=== PATIENT | female | born 1950 | race Caucasian/White ===

== ENCOUNTER → 2016-09-03 | Day surgery (SDC) | payer OTHER ==
[~2016-09-03] VITALS: Ht 165.1 cm; Wt 78.8 kg
[~2016-09-03] MED LIST: *ONDANSETRON 4 MG VIAL PERIprocedural Use ONLY ONE; *PROMETHAZINE 25 MG/ML VIAL PERIprocedural use ONLY ONE; ACETAMINOPHEN 1000 MG/100 ML VIAL IV SCH; ASPI1TAB69 PO; BUPIVACAINE LIPOSOME PF 1.3% 20 ML VIAL INFIL ONE; BUPIVACAINE/EPINEPHRINE 0.5% 50 ML VIAL ONE; COUM7.5T PO; DEXAMETHASONE SOD PHOS 4 MG/ML VIAL ONE; ESTR42.5V VAGINAL; FAMOTIDINE 20 MG/2 ML VIAL ONE; INSULIN HUMAN REGULAR 1,000 UNITS/10 ML VIAL SQ PRN; KETAMINE HCL 500 MG/5 ML VIAL ONE; LACTATED RINGER'S 1000 ML IV SCH; LIDOCAINE 1%/EPINEPHrine 1:100,000 SOLN 50 ML VIAL ONE; METOPROLOL TARTRATE 25 MG TAB PO PRN; MIDAZOLAM HCL 2 MG/2 ML VIAL ONE; MORPHINE SULFATE 4 MG/ML INJ IV PRN; ONDANSETRON HCL 4 MG/2 ML VIAL IV PRN; ONDANSETRON HCL 4 MG/2 ML VIAL IV PUSH ONE; PROPOFOL 200 MG/20 ML AMP IV ONE; SODIUM CHLORID 0.9% 500 ML IV SCH; SODIUM CHLORIDE 5 ML FLUSH BID IVF SCH; SODIUM CHLORIDE 5 ML FLUSH PRN IVF; TIMO0.5S30 RIGHT EYE; ZANT150T2 PO; ceFAZolin 2 GM PREMIX 50 ML IV SCH; oxyCODONE/ACETAMINOPHEN 5 MG/325 MG TAB PO PRN
[2016-09-03 06:42] VITALS: BP 120/70; PULSE 63; RESP 16; TEMP 97.9; O2SAT 99
[2016-09-03 07:16] LABS: PROTHROMBIN TIME - PATIENT 11.2 SEC (9.8-11.6)
--- NOTE | 2016-09-03 11:02 | PD.OP ---
cc: Jeferson Howell MD Operative Report Date of Surgery: Sep 03, 2016 Preoperative Diagnosis: Right inguinal hernia Postoperative Diagnosis: Right inguinal hernia Procedure: Repair of right inguinal hernia with pro-brick catcher mesh Anesthesia: Gen. Surgeon: Jeferson Howell Emergency Medical Technician(s): SIMONE Hebert Operation and Findings: Operative findings: The patient was found to have a defect near the pubic symphysis which is approximately 2-1/2 cm in diameter. There is no evidence of incarcerated viscera. No other abnormalities were noted. Operative procedure: The patient was brought to the operating room and after satisfactory sedation by anesthesia, the abdomen was prepped and draped in the usual sterile fashion. 0.5% Exparel was used to infiltrate the skin for local anesthesia. A transverse right inguinal incision was made, carried out sharply through the subcutaneous tissue, with the cautery being used for hemostasis. Incision was deepened to the external oblique fascia which was opened in the direction of its fibers down to and through the external ring. The underside of the fascia was cleaned and the hernia sac was identified. The hernia sac was dissected free from the surrounding structures using the cautery after which it was circumferentially scored to allow reduction into the properitoneal space. After completely identifying the area of the hernia in the inguinal floor, the floor was closed with interrupted 0 Vicryl sutures which were brought between the internal oblique fascia and the shelving edge of the inguinal ligament. A piece of pro-brick catcher mesh was then cut to the appropriate shape and secured anterior to the repaired floor by pressing its posterior Vicryl hooks into the surrounding tissue. A single suture of 0 Prolene was used to anchor the mesh to the pubic symphysis. Hemostasis was checked for and found be satisfactory. The external oblique fascia was then closed with a running 3-0 Vicryl suture. Extra local anesthesia was infiltrated in the surrounding tissues after which the subcutaneous tissues tissue was closed with interrupted 3-0 Vicryl sutures and skin closed with interrupted 4-0 Monocryl subcuticular stitches. Steri- Strips were applied and the patient was then taken from the operating room, satisfactory condition, having tolerated the procedure without problem. Estimated blood loss was less than 5 mL's. The instrument, sponge, needle counts were reported as being correct 2 at the end of the procedure. Jeferson Howell MD Sep 03, 2016 11:02
[2016-09-03 11:27] VITALS: BP 130/69; PULSE 63; RESP 17; TEMP 98.3; O2SAT 97
== END | disposition home or self-care (01) ==
LOC: HSDC 05:56
PROVIDERS: ATTEND Surgery
DX: K40.90 Unilateral inguinal hernia, without obstruction or gangrene, not specified as recurrent (principal); Z79.01 Long term (current) use of anticoagulants; Z86.73 Personal history of transient ischemic attack (TIA), and cerebral infarction without residual deficits
CPT/HCPCS: 00830; 49505; 85610; C1781; C9290; J0131; J0690; J1100; J2250; J2405; J2550; J3010; J7120